=== PATIENT | female | born 1950 | race Caucasian/White ===

== ENCOUNTER 2021-11-30 06:05 | Day surgery (SDC) | payer MEDICARE ==
[2021-11-30] MEDS ORDERED: Marcaine Mpf 0.5% Vial 30 Ml IJ ONE (06:06)
[2021-11-30] MEDS ORDERED: Reglan 10 MG/2 ML IV ONE (06:13)
[2021-11-30] MEDS ORDERED: Pepcid 20 MG VIAL IV ONE (06:13)
[2021-11-30] MEDS ORDERED: Lactated Ringers 1,000 ML IV SCH (06:30)
[2021-11-30] MEDS ORDERED: CEFAZOLIN 2 GM-D5W BAG** 2 GM/50 ML ML IV SCH (06:30)
[2021-11-30] MEDS ORDERED: XYLOCAINE 1% HCL 20 ML MDV ONE (06:43)
[2021-11-30] MEDS ORDERED: DIPRIVAN 200 MG/20 ML IV ONE ×2 (07:02→08:54)
[2021-11-30] MEDS ORDERED: Xylocaine-Mpf 2% 5 Ml Vial ONE (07:02)
[2021-11-30] MEDS ORDERED: SUBLIMAZE 100 MCG/2 ML ONE (07:02)
[2021-11-30] MEDS ORDERED: Versed 2 MG/2 ML Injection ONE (07:02)
--- NOTE | 2021-11-30 09:30 | XRAY ---
Indication: Right 2nd toe amputation. Intraoperative fluoroscopy provided for 5 seconds. 2 digital spot images submitted for interpretation demonstrates total 2nd toe and 2nd metatarsal head amputation. Correlate with intraoperative findings/report.
--- NOTE | 2021-11-30 09:54 | XRAY ---
5 seconds fluoroscopy time in surgery for amputation of the right 2nd toe.
[2021-11-30 10:59] VITALS: BP 145/68; PULSE 57; O2SAT 97
[2021-11-30] MEDS ORDERED: Lactated Ringers 1,000 ML IV ONE (14:22)
--- NOTE | 2021-12-03 11:07 | OP ---
SURGERY DATE: 11/30/2021 SURGERY TIME: 828 PREOPERATIVE DIAGNOSIS: 1. RIGHT FOOT PAIN. 2. SECOND TOE ULCER. 3. METATARSAL DEFORMITY SECOND METATARSAL. 4. PLANTAR FAT PAD ATROPHY. 5. HYPOMOBILITY OF FOOT. 6. INGROWING TOENAIL RIGHT HALLUX. POSTOPERATIVE DIAGNOSIS: 1. RIGHT FOOT PAIN. 2. SECOND TOE ULCER. 3. METATARSAL DEFORMITY SECOND METATARSAL. 4. PLANTAR FAT PAD ATROPHY. 5. HYPOMOBILITY OF FOOT. 6. INGROWING TOENAIL RIGHT HALLUX. PROCEDURE: 1. AMPUTATION SECOND TOE AND PARTIAL METATARSAL AMPUTATION. 2. COMPLETE NAIL AVULSION RIGHT HALLUX. SURGEON: Charlie Vaughan D.P.M. PARTY DIRECTOR: None. ANESTHESIA: MAC plus local. HEMOSTASIS: Ankle tourniquet set to 250 mm Hg for 8 minutes. ESTIMATED BLOOD LOSS: Less than 3 cc. MATERIALS: 4-0 Monocryl, 3-0 Nylon. INJECTABLES: 20 cc of a 1:1 mixture of 1% Lidocaine plain and 0.5% Bupivicaine plain injected in a Kelly block and a metatarsal block type fashion to the 1st and 2nd metatarsals respectively. INDICATIONS FOR PROCEDURE: [place] is a very pleasant 71 y/o female who presented to my office with concerns of her pain to her 2nd digit due to a contracture of the 2nd digit. The patient has had multiple procedures on this toe which has resulted in some pain and ulceration that is developing due to a kissing lesion between the 2nd and the 3rd digit. There is a lateral deviation of the digit and a residual hammertoe deformity that has resulted in significant pain that has been worked on by a single separate provider multiple times with no relief of her symptoms. Patient also does have pain sub 2nd metatarsal head as a result of residual hypomobility of the 1st ray. This has allowed her to gain a significant amount of pressure underneath this joint. Options were discussed with the patient in regards to treatment for this. The patient's plantar fat pad has diminished quite significantly and results potentially would vary depending on this factor. Reconstructive options were offered in which the patient was considering. Where the ulceration was, was also considered to be debrided as well as an exostectomy was to be considered as well. The option given patient's age and sedentary lifestyle for an amputation was also offered as for the ease of the procedure and the return to activity being thereafter. The patient thought carefully about the options and wished to proceed with the amputation of both the toe and a partial amputation of the metatarsal in order to alleviate the pain that has been going on for a significant amount of time. At this time, the patient understands all risks, complications, and benefits of the procedure. She has made it very clear that this is her decision to proceed with the elective amputation. There is an ulcer. However, patient does not have risk factors present for osteomyelitis at least in my clinical presentation and opinion. From that standpoint, patient wishes to procedure with surgical intervention at this time. No guarantees were provided as to the outcome. It is with that, we decided to proceed. DESCRIPTION OF PROCEDURE: The patient was brought into the OR. Placed on the OR table in the supine position at this time. Adequate anesthesia was administered until the patient was sedated. The patient then had an ankle tourniquet applied to the right ankle which the tourniquet was set to 250 mm Hg and the right foot was prepped and draped in the typical sterile fashion. At this time, attention was directed to the right foot where a Kelly block and a metatarsal block were performed to the 1st and 2nd metatarsals respectively. This consisted of 20 cc of 1:1 mixture of 1% Lidocaine plain and 0.5% Bupivicaine plain. At this time, the 2nd digital amputation was performed. This was performed with a dorsal Whack-it type incision over the digit leaving enough distal skin for closure at the end of the procedure. Incision was carried down to bone being careful not to damage any of the muscular attachments or ligamentous attachments of the surrounding metatarsals. At this time, the 2nd digit was disarticulated and the 2nd metatarsal head was exposed. Following this, the 2nd metatarsal head was resected at the surgical neck utilizing a sagittal saw. At this time, copious amounts of sterile saline and iodine were introduced into the wound and timed for 90 seconds. At this time, it was flushed with copious amounts of sterile saline and a primary closure was performed utilizing 4-0 Monocryl and 3-0 Nylon. Once the incision was coapted, attention was then directed to the hallux of the right foot where a freer was utilized to remove the ingrowing toenail completely. At this time, the tourniquet was let down at a total of 8 minutes. A dressing consisting of betadine, Adaptic, 4 X4, Kerlex, and Miguelito was applied to the 2nd digital amputation site and a separate dressing for postoperative care was performed over the partial hallux amputation consisting of iodine, Adaptic, 4 X4, and Coban. Patient was reversed from anesthesia and returned to the PACU with vital signs stable and vascular status intact. The patient handled the anesthesia as well as the procedure without significant complication. Postoperative orders as indicated in the patient's discharge chart.
== END 2021-11-30 11:15 | disposition home or self-care (01) ==
LOC: SDC 06:05
PROVIDERS: ATTEND Podiatrist Foot & Ankle Surgery
DX: L97.519 Non-pressure chronic ulcer of other part of right foot with unspecified severity (principal); M79.671 Pain in right foot; M79.4 Hypertrophy of (infrapatellar) fat pad; L60.0 Ingrowing nail; M21.6X1 Other acquired deformities of right foot; M35.7 Hypermobility syndrome
CPT/HCPCS: 11730; 28810; 73620; 76000; 99100; J0690; J2250; J2704; J3010

== ENCOUNTER 2022-10-18 07:29 | Day surgery (SDC) | payer MEDICARE ==
[2022-10-18] MEDS ORDERED: CEFAZOLIN 2 GM-D5W BAG** 2 GM/50 ML ML IV SCH (07:30)
[2022-10-18] MEDS ORDERED: Lactated Ringers 1,000 ML IV ONE ×2 (07:47→08:38)
[2022-10-18] MEDS ORDERED: CEFAZOLIN 2 GM-D5W BAG** 2 GM/50 ML ML IV ONE (07:47)
[2022-10-18 07:51] VITALS: RESP 18
[2022-10-18] MEDS ORDERED: Lactated Ringers 1,000 ML IV SCH (08:00)
[2022-10-18 08:14] LABS: Hematocrit 41.3 % (35-47); Hemoglobin 13.4 g/dL (12.0-16.0); Mean Cell Volume 94.9 fL (78-100); Mean Corpuscular Hemoglobin 30.8 pg (26-32); Mean Corpuscular Hgb Concent. 32.4 g/dL (32-36); Mean Platelet Volume 11.5 fL (7.5-11.0); Platelet Count 180 x10^3/uL (150-450); Red Blood Count 4.35 x10^6/uL (4.1-5.4); Red Cell Distribution Width 13.3 % (11.5-14.0)
[2022-10-18 08:32] LABS: INR 0.9 (0.8-3.0); PROTIME 9.9 SECONDS (9.4-12.5); PTT 27.5 SECONDS (25.1-36.5)
[2022-10-18] MEDS ORDERED: DIPRIVAN 200 MG/20 ML IV ONE (08:34)
[2022-10-18] MEDS ORDERED: Zofran 4 MG/2 ML VIAL ONE (08:34)
[2022-10-18] MEDS ORDERED: SUBLIMAZE 100 MCG/2 ML ONE (08:34)
[2022-10-18] MEDS ORDERED: Decadron 4 MG INJ ONE (08:34)
[2022-10-18] MEDS ORDERED: TORAdol 30 mg Injection ONE (08:34)
[2022-10-18] MEDS ORDERED: Xylocaine-Mpf 2% 5 Ml Vial ONE (08:34)
[2022-10-18] MEDS ORDERED: Versed 2 MG/2 ML Injection ONE (08:35)
[2022-10-18] MEDS ORDERED: Xylocaine 1% Vial 30 ML PF IJ ONE (08:38)
[2022-10-18] MEDS ORDERED: Marcaine Mpf 0.5% Vial 30 Ml ONE (08:38)
[2022-10-18 08:59] LABS: ALBUMIN 4.3 g/dL (3.5-5.0); ALKALINE PHOSPHATASE 144 U/L (38-126); BLOOD UREA NITROGEN 18 mg/dL (7-17); CHLORIDE 104 mmol/L (98-107); Calcium 9.4 mg/dL (8.4-10.2); Carbon Dioxide 28 mmol/L (22-30); Creatinine 1 0.71 mg/dL (0.52-1.04); EST GLOMERULAR FILTRATION RATE > 60.0 ML/MIN; Glucose 108 mg/dL (74-106); Potassium 4.3 mmol/L (3.5-5.1); SGOT/AST 32 U/L (14-36); SGPT/ALT 29 U/L (0-35); SODIUM 137 mmol/L (137-145); Total Protein 7.2 g/dL (6.3-8.2)
[2022-10-18] MEDS ORDERED: Ephedrine Sulfate 50 MG/ML ONE (09:46)
--- NOTE | 2022-10-18 10:37 | XRAY ---
Indication: Left 1st IP joint arthrodesis. Intraoperative fluoroscopy provided for 1 minute 4 seconds. 10 digital spot images submitted for interpretation ultimately demonstrates 1st IP joint arthrodesis with intact screw and orthopedic stable. Correlate with intraoperative findings/report.
[2022-10-18 11:52] VITALS: O2SAT 95
[2022-10-18 12:13] VITALS: BP 132/63; PULSE 72; TEMP 96.6
--- NOTE | 2022-10-18 12:53 | XRAY ---
1 minute and 4 seconds of fluoroscopy was used in surgery for an arthrodesis of the 1st IPJ, possible Krish procedure 1st metatarsalphalangeal joint on the left foot.
--- NOTE | 2022-10-18 14:22 | OP ---
SURGERY DATE: 10/18/2022 SURGERY TIME: 903 PREOPERATIVE DIAGNOSIS: 1. LEFT INTERPHALANGEAL JOINT OSTEOARTHRITIS. 2. ACCESSORY OSSICLE LEFT FOOT. 3. OSTEOARTHRITIS 1ST METATARSOPHALANGEAL JOINT. POSTOPERATIVE DIAGNOSIS: 1. LEFT INTERPHALANGEAL JOINT OSTEOARTHRITIS. 2. ACCESSORY OSSICLE LEFT FOOT. 3. OSTEOARTHRITIS 1ST METATARSOPHALANGEAL JOINT. 4. 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 PROCEDURE: 1. Arthrodesis left interphalangeal joint hallux. 2. Colleen procedure. 3. Removal of accessory ossicle. 4. Microfracture of osteochondral lesion 1st metatarsal head. SURGEON: Charlie Vaughan D.P.M. SMALL EQUIPMENT OPERATOR: None. ANESTHESIA: General. HEMOSTASIS: An ankle tourniquet set to 250 mm Hg for approximately 30 total tourniquet minutes. ESTIMATED BLOOD LOSS: Minimal. INJECTABLES: 20 cc of a 1:1 mixture of 1% Lidocaine plain and 0.5% Bupivicaine plain injected in a Kelly-block type fashion. INDICATIONS FOR PROCEDURE: [place] is a very pleasant 72 year-old female who presented to my clinic with complaints of pain to the great toe as well as the metatarsophalangeal joint of the left foot. The patient indicated that this has always caused her some degree of issue with pain. On clinical examination, there is crepitation with range of motion at the interphalangeal joint and significant pain and to a lesser degree, pain at the metatarsophalangeal joint. However, not as significant as the interphalangeal joint. From that standpoint, options were discussed and the patient attempted conservative options consisting of skipper shoe gear with wider toe box as well as an injection which seemingly caused her more pain following the injection than prior to for several days after the Lidocaine wore off. At that time, the patient decided she would like to proceed with surgical intervention. She understands all risks and benefits and complications of the procedure. No guarantees were provided. DESCRIPTION OF PROCEDURE: The patient was brought into the OR. Placed on the OR table in the supine position. At this time, general anesthesia was administered until the patient was sedated. A well-padded ankle tourniquet was applied and the tourniquet was set to 250 mm Hg. At this time, the left lower extremity was prepped and draped in the typical sterile fashion and lowered onto the surgical field. At this time, attention was directed to the dorsal aspect of the patient's left foot where a linear incision was carried out over the dorsal aspect of the interphalangeal joint and the 1st metatarsal joint. This dissection was carried down to both the metatarsophalangeal joint and the interphalangeal joint respectively. Care was made not to damage any neurovascular structures along the way. At this time, attention was first directed to the interphalangeal joint where, on inspection of the joint following the capsulotomy, there was significant amount of arthrosis of the medial aspect of the joint. Upon removal of the joint, utilizing the 18 mm sagittal saw, a large accessory ossicle was encountered at the plantar aspect of the site. A pair of Rongeur's was utilized to resect this portion of tissue which was firm, mobile, and bony with a cartilaginous [place] surrounding it. This measured an aggregate approximately 0.5 mm X 0.3 mm. From that standpoint, copious amounts of sterile saline were utilized to flush the site. A 2 mm drill was used to fenestrate the surfaces of the bone and a 4.0 X 38 mm max VPC screw was introduced from the distal tip of the toe into the base of the proximal phalanx with adequate fixation. Following this, a 10 X 8 Unitus staple was then introduced from a dorsomedial to plantar lateral orientation. This gained excellent compression. Attention then was directed to the 1st metatarsophalangeal joint here capsulotomy was performed. Following this, a significant amount of arthritis was identified with a large 6 mm X 6 mm circumferential osteochondral defect at the center of the metatarsal head. From this standpoint, a cheilectomy and a proximal base osteotomy was performed checking range of motion throughout and making sure not to resect too much of the metatarsal head. At this time, we were able to include approximately 20 degrees dorsiflexion to approximately 45 degrees with some increased range of motion at the plantar flexion as well by approximately 30 degrees which there was limited functional plantar flexion to the 1st metatarsophalangeal joint before. Following this, a 2 mm drill was utilized to fenestrate and microfracture the osteochondral defect central to the 1st metatarsal head. Following this, copious amounts of sterile saline were utilized to flush the joint. The capsule was repaired utilizing 4-0 Monocryl. Following this, 4-0 Monocryl was utilized to coapt the subcutaneous edges in a simple interrupted type fashion and then 3-0 Nylon was utilized to juan antonio the skin edges in a horizontal mattress type fashion. A dressing consisting of Betadine, Adaptic, 4 X 4, Kerlix, and Miguelito was applied to the patient's left lower extremity. The patient was then reversed from anesthesia and returned to the PACU with vital signs stable and vascular status intact. The patient handled the anesthesia as well as the procedure without significant complication. Postoperative orders as indicated in the patient's discharge chart.
== END 2022-10-18 12:15 | disposition home or self-care (01) ==
LOC: SDC 07:29
PROVIDERS: ATTEND Podiatrist Foot & Ankle Surgery
DX: M19.072 Primary osteoarthritis, left ankle and foot (principal); Q66.89 Other specified congenital deformities of feet
CPT/HCPCS: 28022; 28289; 28755; 36415; 73630; 76000; 80053; 85027; 85610; 85730; C1713; J0690; J1100; J1885; J2001; J2250; J2405; J2704; J3010

== ENCOUNTER 2023-09-22 16:39 | Emergency (ER) | payer MEDICARE ==
[2023-09-22] MEDS ORDERED: Sodium Chloride 0.9% 500 ML 500 ML IV ONE (16:50)
[2023-09-22 16:51] VITALS: TEMP 98
[2023-09-22] MEDS: Sodium Chloride 0.9% 500 ML 500 ML IV ONE (16:51)
--- NOTE | 2023-09-22 17:06 | ERPHSYRPT ---
- History of Present Illness Time Seen by Provider: 09/22/23 17:00 Source: patient Exam Limitations: no limitations Patient Subjective Stated Complaint: C/O abnormal labs; elevated D-Dimer today. Triage Nursing Assessment: Patient ambulated back to ER without difficulties. She is alert and oriented. NO cough noted during assessment. Patient does not appear SOB at this time. Skin tone normal. Physician History: This is a 73-year-old white female patient who arrives by private vehicle and is a patient of Dr. Hernandez. The patient was seen by the nurse practitioner secondary to symptoms of shortness of breath. Outpatient chest x-ray was performed and I reviewed the impression by the radiologist. It states new mild right costophrenic interstitial alveolar opacity present. In addition I reviewed outpatient labs that were performed today. Of significance, there was an elevated D-dimer of 1.5. The GFR is normal at 83.5. Currently, patient denies shortness of breath. She does not have chest pain. She has not had a cough. She denies fevers. Patient does have a history of hypothyroidism, hypertension and gastroesophageal reflux disease. Severity of Dyspnea-Max: mild Severity of Dyspnea-Current: mild Possible Cause: no prior episodes Modifying Factors: Improves With: activity Associated Symptoms: No cough, No chest pain/discomfort Allergies/Adverse Reactions: No Known Drug Allergies Allergy (Verified 09/22/23 16:40) Home Medications: Atorvastatin Calcium 40 mg PO DAILY 11/19/21 [History] Calcium Carbonate/Vitamin D3 [Calcium 500 mg-Vit D3 5 Mcg Tb] 1 tab PO DAILY 11/19/21 [History] Famotidine 20 mg [Pepcid 20 MG] 1 g PO HS 11/19/21 [History] Levothyroxine Sodium 50 Mcg [Synthroid 50 Mcg] 50 mcg PO DAILY 11/19/21 [History] Meloxicam 15 mg [Meloxicam 15 MG] 15 mg PO UD 11/19/21 [History] Potassium Chloride [Klor-Con M10] 1 tab PO BID 11/19/21 [History] Sertraline HCl 50 mg [Zoloft 50 mg Tablet] 50 mg PO HS 11/19/21 [History] Verapamil HCl [Verapamil ER] 180 mg PO HS 11/19/21 [History] Albuterol Sulfate [Albuterol Sulfate Hfa] 2 puffs IH QIDPRN PRN 09/17/22 [History] Fluticasone/Umeclidin/Vilanter [Trelegy Ellipta 100-62.5-25] 1 puff IH DAILY 09/17/22 [History] Folic Acid/Multivit,Iron,Mccormick [One Daily For Women Tablet] 1 tab PO DAILY 09/17/22 [History] Gabapentin [Neurontin ] 100 mg PO BID 09/17/22 [History] Hx Tetanus, Diphtheria Vaccination/Date Given: Yes Hx Influenza Vaccination/Date Given: Yes Hx Pneumococcal Vaccination/Date Given: Yes Immunizations Up to Date: Yes Travel Risk - International Travel Have you traveled outside of the country in past 3 weeks: No - Emerging Infectious Disease Are you exhibiting symptoms associated with any current EIDs: Yes Symptoms: Shortness of Breath - Review of Systems Constitutional: No Symptoms Eyes: No Symptoms Ears, Nose, & Throat: No Symptoms Respiratory: Dyspnea Cardiac: No Symptoms Abdominal/Gastrointestinal: No Symptoms Genitourinary Symptoms: No Symptoms Musculoskeletal: No Symptoms Skin: No Symptoms Neurological: No Symptoms Psychological: No Symptoms Endocrine: No Symptoms Hematologic/Lymphatic: No Symptoms Immunological/Allergic: No Symptoms All Other Systems: Reviewed and Negative - Past Medical History Pertinent Past Medical History: Yes Neurological History: Migraines, Stroke ENT History: Cataracts Cardiac History: No Pertinent History Respiratory History: COPD Endocrine Medical History: No Pertinent History Musculoskeletal History: Osteoarthritis GI Medical History: GERD, Gallbladder Disease History: No Pertinent History Psycho-Social History: Anxiety Female Reproductive Disorders: No Pertinent History Other Medical History: CVA IN 2008, NO RESIDUAL DEFICITS, OSTEOPENIA DIAGNOSED WITH BONE SCAN A FEW YEARS AGO. - Past Surgical History Past Surgical History: Yes Neuro Surgical History: No Pertinent History Cardiac: No Pertinent History Respiratory: No Pertinent History Gastrointestinal: Appendectomy, Cholecystectomy Genitourinary: No Pertinent History Musculoskeletal: Orthopedic Surgery Female Surgical History: No Pertinent History Other Surgical History: foot surgery both feet, carpel tunnel both hands, cataract both eyes, bilateral knee replacements - Social History Smoking Status: Former smoker How long have you smoked: 20 years Exposure to second hand smoke: No Drug Use: none - Social Determinants of Health Will the patient participate in the screening: Yes Do you worry about a steady place to live?: No Do you have any problems with any of the following?: No known problems In the past 12 months,have you had to go without utilities?: No Transportation Issues: No Has anyone in your support network made you feel unsafe?: No Have you or anyone in your house had to go without enough: No - Nursing Vital Signs Nursing Vital Signs: Initial Vital Signs Pulse Rate 79 09/22/23 16:38 Respiratory Rate 29 H 09/22/23 16:38 Blood Pressure 161/75 09/22/23 16:38 O2 Sat by Pulse Oximetry 95 09/22/23 16:38 Pain Scale Pain Intensity 0 - Physical Exam General Appearance: no apparent distress, alert, anxiety Eye Exam: PERRL/EOMI, eyes nml inspection Ears, Nose, Throat Exam: hearing grossly normal, normal ENT inspection, normal pharynx Neck Exam: normal inspection, non-tender, supple, full range of motion Respiratory Exam: normal breath sounds, lungs clear, airway intact, No chest tenderness, No respiratory distress Cardiovascular/Chest Exam: normal heart sounds, regular rate/rhythm Abdominal/Gastrointestinal Exam: soft, normal bowel sounds, No tenderness Rectal Exam: not done Extremity Exam: non-tender, normal range of motion, normal inspection Neurologic Exam: alert, oriented x 3, cooperative, 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 tested, normal mood/affect, nml cerebellar function, nml station & gait, sensation nml Skin Exam: normal color, warm, dry Lymphatic Exam: No adenopathy SpO2 Interpretation: normal SpO2: 96 O2 Delivery: Room Air - Course Nursing assessment & vital signs reviewed: Yes Ordered Tests: Active Orders 24 hr Category Date Time Status IV Insertion STAT Care 09/22/23 16:46 Active CHEST WITH CONTRAST [CT] Stat Exams 09/22/23 16:44 Taken Medication Summary Discontinued Medications Generic Name Dose Route Start Last Admin Trade Name Freq PRN Reason Stop Dose Admin Sodium Chloride 500 mls @ 500 mls/hr 09/22/23 16:46 09/22/23 17:51 Sodium Chloride 0.9% 500 Ml IV 09/22/23 17:45 Infused .Q1H ONE Infusion Sodium Chloride Confirm 09/22/23 16:50 Sodium Chloride 0.9% 500 Ml Administered 09/22/23 16:51 Dose 500 mls @ ud IV .STK-MED ONE - Progress Progress: improved, re-examined Air Movement: good Progress Note: 09/22/23 17:03 My medical decision making and the assignment of moderate complexity was based on the review of the patient's past medical history, review of the patient's recent outpatient lab results, review of the patient's recent chest x-ray results read by the radiologist, review of the patient's medication list, reviewed patient drug allergy list, history present illness and physical findings on examination. The workup in this patient includes placement of intravenous line, infusion of normal saline solution, CT scan of the chest with contrast. There is no need to repeat the labs that were performed this morning. 09/22/23 18:22 I interpreted the patient's lab results that were performed earlier today. The patient's troponin level is also normal. CT scan of the chest with contrast was interpreted by the radiologist. I reviewed the impression. The impression states no comparison films. No pulmonary embolus. Diffuse emphysema, fibrosis and scarring. Although the chest x-ray stated that there was infiltrate in the right lung that is mild. The CT scan, which is a more defined test does not show an infiltrate and therefore we will not place the patient on steroids or antibiotics. The patient recently completed both steroids and antibiotics that were provided her by her step down nurse. Patient has a follow-up appointment to see her step down nurse on 09/30/2023. Patient was told to use her nebulizer albuterol medication every 6-8 hours while awake. Blood Culture(s) Obtained: No Counseled pt/family regarding: lab results, diagnosis, rad results Medical Desision Making - Independent Historian Additional History obtained from: Family - Diagnostic Testing Diagnostic test were ordered, analyzed, and reviewed by me: Yes Radiological Interpretation: Reviewed by me, Teleradiologist Report - Risk of complications Low Risk: Low risk of morbidity from additional dx testing or treatment - Departure Departure Disposition: Home Clinical Impression: Emphysema of lung, Elevated d-dimer Condition: Stable Critical Care Time: No Referrals: NILSON HERNANDEZ MD [Primary Care Provider] - Follow up/PCP as directed Instructions: Chronic Obstructive Pulmonary Disease Additional Instructions: Use your nebulizer treatments every 6-8 hours while awake. Continue your other medication as prescribed. Follow-up with your step down nurse at your scheduled appointment date and time.
[2023-09-22 18:22] VITALS: O2SAT 96
[2023-09-22 18:31] VITALS: BP 154/82; PULSE 68; RESP 18
--- NOTE | 2023-09-23 08:35 | XRAY ---
Indication: Cough. Elevated d-dimer. Multiple contiguous axial images obtained through the chest using 80 cc Isovue 370 contrast and PE protocol. Comparison: None Good opacification of the pulmonary arteries to include the lobar and segmental branches. No pulmonary embolus. Heart not enlarged. Aorta is normal in course and caliber. Tiny mediastinal calcified nodes. No pathologic mediastinal/hilar lymphadenopathy. Small hiatal hernia. Lungs demonstrates moderate diffuse pulmonary emphysema and moderate diffuse scattered fibrosis/scarring. No suspicious pulmonary mass/nodule, infiltrate, consolidation, or effusion. Bony thorax intact with osteopenia and minimal/mild degenerative changes throughout the spine. Limited upper abdomen demonstrates two 5 mm hepatic cysts and cholecystotomy clips. Impression: 1. Negative pulmonary embolus. No acute cardiopulmonary abnormalities. 2. Chronic findings including pulmonary emphysema, fibrosis/scarring, chronic bony findings, hiatal hernia, and hepatic cysts.
== END 2023-09-22 18:36 | disposition home or self-care (01) ==
LOC: ED 16:39
DX: J43.9 Emphysema, unspecified (principal); R79.1 Abnormal coagulation profile; R06.02 Shortness of breath; I10 Essential (primary) hypertension; Z79.899 Other long term (current) drug therapy
CPT/HCPCS: 36000; 71260; 99284